=== PATIENT | female | born 1995 | race Two or more races ===

== ENCOUNTER 2018-12-04 20:18 | Emergency (ER) | payer OTHER, SELFPAY ==
[2018-12-04 21:13] LABS: Pregnancy Test - Urine (BHCG) Negative (Negative); Pregu Control Background? CLEAR/WHITE (CLR/WHITE); Pregu Control Bar Appear? YES (CONTROL BAR); Specific Gravity 1.031 (1.002-1.036)
[2018-12-04 23:23] LABS: #Eosinphils 0.2 thou/uL (0.0-0.7); #Lymphocytes 3.3 thou/uL (1.20-3.40); #Monocytes 0.6 thou/uL (0.11-0.59); #Neutrophils 5.2 thou/uL (1.40-6.50); %Basophils 0.4 % (0.0-1.0); %Eosinophils 2.6 % (0.0-10.0); %Lymphocytes 35.2 % (21.0-51.0); %Monocytes 6.2 % (0.0-10.0); %Neutrophils 55.5 % (42.0-75.0); Hemoglobin 11.7 g/dL (12.0-16.0); Mean Corpuscular HGB CONC 32.1 g/dL (32.0-36.0); Mean Corpuscular Hemoglobin 25.4 pg (27.0-31.0); Mean Corpuscular Volume 79.1 fL (78.0-98.0); Mean Platelet Volume 7.7 fL (7.4-10.4); Platelet Count 248 thou/uL (130-400); RBC Distribution Width 13.5 % (11.5-14.5); Red Blood Cell (RBC) Count 4.59 mill/uL (4.20-5.40); White Blood Cell (WBC) Count 9.4 thou/uL (4.8-10.8)
[2018-12-04 23:41] LABS: Anion Gap 13 mmol/L (10-20); BUN (Urea Nitrogen) 11 mg/dL (7.0-18.7); Calc. Creatinine Clearance 0 mL/min (70-130); Calcium 9.3 mg/dL (7.8-10.44); Carbon Dioxide 26 mmol/L (22-29); Chloride 103 mmol/L (98-107); Estimated GFR-MDRD Greater than 90; Glucose 91 mg/dL (70-105); Potassium 4.1 mmol/L (3.5-5.1); Sodium 138 mmol/L (136-145)
== END 2018-12-05 00:14 | disposition home or self-care (01) ==
LOC: ERS 20:18
DX: N93.9 Abnormal uterine and vaginal bleeding, unspecified (principal)
CPT/HCPCS: 36415; 80048; 81025; 85025; 99284

== ENCOUNTER 2022-09-02 23:10 | Inpatient (IN) | payer OTHER, SELFPAY ==
[2022-09-02 23:43] LABS: #Eosinphils 0.1 thou/uL (0.0-0.7); #Lymphocytes 1.6 thou/uL (1.20-3.40); #Monocytes 0.8 thou/uL (0.11-0.59); #Neutrophils 7.3 thou/uL (1.40-6.50); %Basophils 0.2 % (0.0-1.0); %Eosinophils 1.5 % (0.0-10.0); %Lymphocytes 15.9 % (21.0-51.0); %Monocytes 7.9 % (0.0-10.0); %Neutrophils 74.5 % (42.0-75.0); Hemoglobin 10.4 g/dL (12.0-16.0); Mean Corpuscular HGB CONC 30.9 g/dL (32.0-36.0); Mean Corpuscular Hemoglobin 21.9 pg (27.0-31.0); Mean Corpuscular Volume 70.9 fl (78.0-98.0); Mean Platelet Volume 10.1 fL (7.4-10.4); Platelet Count 261 10x3/uL (130-400); RBC Distribution Width 19.2 % (11.5-14.5); Red Blood Cell (RBC) Count 4.73 mill/uL (4.20-5.40); White Blood Cell (WBC) Count 9.8 10x3/uL (4.8-10.8)
[2022-09-02 23:57] LABS: ALT (SGPT) 8 U/L (8-55); AST (SGOT) 17 U/L (5-34); Albumin 3.9 g/dL (3.5-5.0); Alkaline Phosphatase 73 U/L (40-110); Anion Gap 15 mmol/L (10-20); BUN (Urea Nitrogen) 19 mg/dL (7.0-18.7); Bilirubin, Total 0.4 mg/dL (0.2-1.2); Calc. Creatinine Clearance 0 mL/min (70-130); Calcium 8.8 mg/dL (7.8-10.44); Carbon Dioxide 23 mmol/L (22-29); Chloride 104 mmol/L (98-107); Estimated GFR 24; Globulin 3.4 g/dL (2.4-3.5); Glucose 104 mg/dL (70-105); Protein, Total 7.3 g/dL (6.0-8.3); Sodium 138 mmol/L (136-145)
[2022-09-03 00:35] LABS: Bilirubin Negative (Negative); Blood, Urine 2+ (Negative); Clarity Turbid (Clear); Glucose, Urine (Dipstick) Normal (Negative); Ketone, Urine 10 mg/dL (Negative); Leukocyte 25 Leu/uL (Negative); Nitrite Negative (Negative); Protein, Urine (Dipstick) 70 mg/dL (Neg-Trace); Specific Gravity, Urine 1.007 (1.002-1.036); Urobilinogen Normal mg/dL (Less than 2); pH, Urine 5.5 (5.0-9.0)
[2022-09-03 00:44] LABS: Pregnancy Test - Urine (BHCG) Negative (Negative); Pregu Control Background? CLEAR/WHITE (CLR/WHITE); Pregu Control Bar Appear? YES (CONTROL BAR); Specific Gravity 1.007 (1.002-1.036)
[2022-09-03 00:56] LABS: RBC/HPF 0-3 HPF (0-3); Squamous Epithelial 0-3 HPF (0-3); WBC/HPF 0-3 HPF (0-3)
[2022-09-03] MEDS ORDERED: Ondansetron PF 4 MG/2 ML Vial ONE ×2 (01:26→17:23)
[2022-09-03] MEDS ORDERED: Dicyclomine 20 MG/2 ML VIAL ONE (01:26)
[2022-09-03 05:44] LABS: Anion Gap 11 mmol/L (10-20); BUN (Urea Nitrogen) 19 mg/dL (7.0-18.7); Calc. Creatinine Clearance 0 mL/min (70-130); Calcium 8.1 mg/dL (7.8-10.44); Carbon Dioxide 25 mmol/L (22-29); Chloride 107 mmol/L (98-107); Estimated GFR 27; Glucose 95 mg/dL (70-105); Potassium 4.4 mmol/L (3.5-5.1); Sodium 139 mmol/L (136-145)
[2022-09-03] MEDS ORDERED: Morphine 4 MG/ML VIAL ONE (06:15)
[2022-09-03] MEDS ORDERED: Ondansetron PF 4 MG/2 ML Vial IVP PRN (10:45)
[2022-09-03] MEDS ORDERED: Ondansetron ODT 4 MG TAB PO PRN (10:45)
[2022-09-03] MEDS ORDERED: Bisacodyl 10 MG SUPP PR PRN (10:45)
[2022-09-03] MEDS ORDERED: Senokot S 8.6-50 MG TAB PO PRN (10:45)
[2022-09-03] MEDS ORDERED: Acetaminophen 325 MG TAB PO PRN (10:45)
[2022-09-03] MEDS ORDERED: Morphine 2 MG/ML VIAL SLOW IVP PRN (10:47)
[2022-09-03] MEDS ORDERED: Acetaminophen 325 MG TAB ONE (11:00)
[2022-09-03] MEDS ORDERED: fentaNYL PF 100 MCG/2 ML SYRINGE ONE (16:25)
[2022-09-03] MEDS ORDERED: Midazolam HCl 2 mg/2 ml Vial ONE (16:25)
[2022-09-03] MEDS ORDERED: HYDROmorphone 0.5 MG/0.5 ML SYRINGE ONE (16:26)
[2022-09-03 16:35] LABS: SARS-CoV-2 NAA Rapid Test Not Detected (NotDetected)
[2022-09-03] MEDS ORDERED: Iopamidol 15 ML ONE (17:15)
[2022-09-03] MEDS ORDERED: CEFAZOLIN 2 GM VIAL ONE (17:18)
[2022-09-03] MEDS ORDERED: Sodium Chloride 0.9% 100 ML ONE (17:18)
[2022-09-03] MEDS ORDERED: Lidocaine 1% PF 5 ML VIAL ONE (17:23)
[2022-09-03] MEDS ORDERED: PROPOFOL 200 MG/20 ML VIAL ONE (17:23)
[2022-09-03] MEDS ORDERED: Dexamethasone 20 MG/5 ML VIAL ONE (17:23)
[2022-09-03 17:32] LABS: Amphetamine Not Detected (NotDetected); Barbiturates Screen Not Detected (NotDetected); Benzodiazepine Screen Not Detected (NotDetected); Cocaine Metabolite Screen Not Detected (NotDetected); Methadone Not Detected (NotDetected); Methamphetamine Not Detected (NotDetected); Opiate Screen Not Detected (NotDetected); Oxycodone Screen Not Detected (NotDetected); Phencyclidine (PCP) Not Detected (NotDetected); THC/Cannabinoid Screen Not Detected (NotDetected); Tricyclic Screen Not Detected (NotDetected)
[2022-09-03 18:01] LABS: Creatinine, Urine 93.67 mg/dL (47-110)
[2022-09-03] MEDS ORDERED: Promethazine HCl 25 MG/ML VIAL IM PRN (18:06)
[2022-09-03] MEDS ORDERED: Ondansetron HCl/PF 4 MG/2 ML Vial IVP PRN (18:06)
[2022-09-03] MEDS: Sodium Chloride 0.9% 1,000 ML IV SCH ×2 (19:59→22:41)
[2022-09-03] MEDS: Famotidine/PF 20 mg/2ml Vial SLOW IVP SCH (22:40)
[2022-09-04] MEDS: Sodium Chloride 0.9% 1,000 ML IV SCH ×3 (03:36→18:08)
[2022-09-04 09:53] LABS: #Lymphocytes 1.4 thou/uL (1.20-3.40); #Monocytes 0.6 thou/uL (0.11-0.59); #Neutrophils 5.5 thou/uL (1.40-6.50); %Basophils 0.1 % (0.0-1.0); %Eosinophils 0.3 % (0.0-10.0); %Lymphocytes 18.7 % (21.0-51.0); %Monocytes 7.9 % (0.0-10.0); Hemoglobin 8.9 g/dL (12.0-16.0); Mean Corpuscular HGB CONC 30.8 g/dL (32.0-36.0); Mean Corpuscular Hemoglobin 22.2 pg (27.0-31.0); Mean Corpuscular Volume 72.1 fl (78.0-98.0); Mean Platelet Volume 11.7 fL (7.4-10.4); Platelet Count 172 10x3/uL (130-400); RBC Distribution Width 19.6 % (11.5-14.5); White Blood Cell (WBC) Count 7.6 10x3/uL (4.8-10.8)
[2022-09-04 10:06] LABS: Anion Gap 14 mmol/L (10-20); BUN (Urea Nitrogen) 16 mg/dL (7.0-18.7); Calc. Creatinine Clearance 0 mL/min (70-130); Carbon Dioxide 21 mmol/L (22-29); Chloride 111 mmol/L (98-107); Estimated GFR 44; Glucose 100 mg/dL (70-105); Potassium 4.8 mmol/L (3.5-5.1); Sodium 141 mmol/L (136-145)
[2022-09-04 13:30] LABS: Iron 18 ug/dL (50-170); Iron Binding Capacity, Total 351 mcg/dL (265-497)
[2022-09-04] MEDS ORDERED: Docusate 100 MG CAP PO PRN (14:24)
[2022-09-04] MEDS: Sodium Bicarbonate Tab 325 MG TAB PO SCH ×2 (14:44→19:45)
[2022-09-04] MEDS: Ferrous Sulfate 325 MG TAB PO SCH (17:10)
[2022-09-04 18:02] LABS: Bacteria/HPF None Seen HPF (None Seen); Bilirubin Negative (Negative); Blood, Urine 3+ (Negative); CAUTI Indications for Culture Dysuria,urgency,freq; Clarity Clear (Clear); Glucose, Urine (Dipstick) Normal (Negative); Ketone, Urine Negative (Negative); Leukocyte Negative Leu/uL (Negative); Nitrite Negative (Negative); Protein, Urine (Dipstick) 10 mg/dL (Neg-Trace); Specific Gravity, Urine 1.005 (1.002-1.036); Squamous Epithelial 0-3 HPF (0-3); Urobilinogen Normal mg/dL (Less than 2); WBC/HPF 0-3 HPF (0-3); pH, Urine 5.5 (5.0-9.0)
[2022-09-04 18:18] LABS: Urine Culture Reflex No No
[2022-09-04] MEDS ORDERED: Iron, Sodium Ferric Gluconate 250 MG in Sodium Chloride 0.9% 250 ML 250 ML IVPB SCH (18:45)
[2022-09-04] MEDS: Famotidine/PF 20 mg/2ml Vial SLOW IVP SCH (19:45)
[2022-09-04] MEDS ORDERED: Morphine 2 MG/ML VIAL SLOW IVP SCH (23:15)
[2022-09-05] MEDS: Sodium Chloride 0.9% 1,000 ML IV SCH (04:00)
[2022-09-05 07:19] LABS: Anion Gap 11 mmol/L (10-20); BUN (Urea Nitrogen) 13 mg/dL (7.0-18.7); Calc. Creatinine Clearance 0 mL/min (70-130); Calcium 8.4 mg/dL (7.8-10.44); Carbon Dioxide 23 mmol/L (22-29); Chloride 112 mmol/L (98-107); Estimated GFR 50; Glucose 86 mg/dL (70-105); Potassium 3.9 mmol/L (3.5-5.1); Sodium 142 mmol/L (136-145)
[2022-09-05] MEDS: Sodium Bicarbonate Tab 325 MG TAB PO SCH ×3 (08:16→20:40)
[2022-09-05] MEDS: Ferrous Sulfate 325 MG TAB PO SCH ×2 (08:16→17:29)
[2022-09-05] MEDS: Iron, Sodium Ferric Gluconate 250 MG in Sodium Chloride 0.9% 250 ML 250 ML IVPB SCH (10:57)
[2022-09-05] MEDS ORDERED: HYDROcodone/Acetaminophen 5/325 mg Tablet PO PRN (14:39)
[2022-09-05] MEDS: Lactated Ringer's 1,000 ML IV SCH (17:41)
[2022-09-05] MEDS: Famotidine/PF 20 mg/2ml Vial SLOW IVP SCH (20:39)
[2022-09-06] MEDS: Lactated Ringer's 1,000 ML IV SCH (04:56)
[2022-09-06] MEDS: Sodium Bicarbonate Tab 325 MG TAB PO SCH (09:13)
[2022-09-06] MEDS: Ferrous Sulfate 325 MG TAB PO SCH (09:14)
[2022-09-06 09:16] LABS: #Eosinphils 0.3 thou/uL (0.0-0.7); #Lymphocytes 2.4 thou/uL (1.20-3.40); #Monocytes 0.7 thou/uL (0.11-0.59); #Neutrophils 4.4 thou/uL (1.40-6.50); %Basophils 0.4 % (0.0-1.0); %Eosinophils 3.3 % (0.0-10.0); %Lymphocytes 30.7 % (21.0-51.0); %Monocytes 8.4 % (0.0-10.0); %Neutrophils 57.2 % (42.0-75.0); Hemoglobin 8.9 g/dL (12.0-16.0); Mean Corpuscular HGB CONC 30.2 g/dL (32.0-36.0); Mean Corpuscular Hemoglobin 21.9 pg (27.0-31.0); Mean Corpuscular Volume 72.7 fl (78.0-98.0); Mean Platelet Volume 11.6 fL (7.4-10.4); Platelet Count 173 10x3/uL (130-400); RBC Distribution Width 19.7 % (11.5-14.5); Red Blood Cell (RBC) Count 4.07 mill/uL (4.20-5.40); White Blood Cell (WBC) Count 7.8 10x3/uL (4.8-10.8)
[2022-09-06 09:45] LABS: Anion Gap 14 mmol/L (10-20); BUN (Urea Nitrogen) 10 mg/dL (7.0-18.7); Calc. Creatinine Clearance 0 mL/min (70-130); Calcium 8.9 mg/dL (7.8-10.44); Carbon Dioxide 25 mmol/L (22-29); Chloride 106 mmol/L (98-107); Estimated GFR 65; Glucose 82 mg/dL (70-105); Potassium 3.5 mmol/L (3.5-5.1); Sodium 141 mmol/L (136-145)
[2022-09-06 09:47] LABS: Hypochromia SLIGHT = 6-15 cells (100X) (0-5/hpf); MDiff Complete? YES; Microcytosis SLIGHT = 6-15 cells (100X) (0-5/hpf); Ovalocytes SLIGHT = 2-5 cells (100X) (0-1/hpf); Platelet Morphology Comment Appears Adequate; Polychromasia SLIGHT = 2-3 cells (100X) (0-2/hpf)
[2022-09-06] MEDS: Iron, Sodium Ferric Gluconate 250 MG in Sodium Chloride 0.9% 250 ML 250 ML IVPB SCH (10:32)
[2022-09-06 12:47] VITALS: BP 137/91; TEMP 98.3
== END 2022-09-06 13:10 | disposition home or self-care (01) | DRG 683 ==
LOC: ERS 23:10 → ERHOLD 09-03 07:09 → T4-B 09-03 16:51 → OBSVTOIN 09-04 15:39
PROVIDERS: ADMIT Student in an Organized Health Care Education/Training Program; ATTEND Internal Medicine
PROC: BT1D1ZZ Fluoroscopy of Right Kidney, Ureter and Bladder using Low Osmolar Contrast (ICD-10-PCS; principal; 2022-09-03)
DX: N17.9 Acute kidney failure, unspecified (principal); E87.20 Acidosis, unspecified; Z20.822 Contact with and (suspected) exposure to COVID-19; N92.0 Excessive and frequent menstruation with regular cycle; D50.9 Iron deficiency anemia, unspecified; N83.202 Unspecified ovarian cyst, left side; N13.30 Unspecified hydronephrosis; N80.03 Adenomyosis of the uterus; Z79.899 Other long term (current) drug therapy; N85.2 Hypertrophy of uterus; E86.0 Dehydration
CPT/HCPCS: 36415; 74176; 74420; 76770; 76856; 80048; 80053; 80306; 81001; 81003; 81015; 81025; 82550; 82570; 82728; 83540; 83550; 83690; 84156; 84300; 84540; 85025; 87086; 96361; 96372; 96374; 96375; 96376; G0378; J1100; J1170; J2250; J2270; J2272; J2405; J2704; J2916; J3490; J7050; J7120; Q0162; Q9967; S0028; U0002